=== PATIENT | male | born 1995 | race Caucasian/White ===

== ENCOUNTER 2025-06-16 12:25 | Emergency (ER) | payer SELFPAY ==
--- NOTE | ~2025-06-16 | CT_ITS ---
EXAMINATION: CT ABDOMEN AND PELVIS WITH CONTRAST CLINICAL INFORMATION: Abdominal pain, right upper and lower quadrants DLP: 344 mGY*cm COMPARISON: None available. TECHNIQUE: Multidetector volumetric images were obtained from the superior aspect of the liver through the pubic symphysis following administration 85 mL of Omnipaque 350 intravenous contrast. Sagittal and coronal reformatted images were obtained on the technologist's workstation. Oral contrast: No This CT examination was performed using dose optimization techniques as appropriate, variously including the following: *Automated exposure control *Adjustment of mA and/or kV according to patient size (this includes techniques or standardized protocols for targeted exams where dose is matched to indication/reason for exam; i.e. extremities or head) *Use of iterative reconstruction technique FINDINGS: LUNG BASES: The visualized lung bases are unremarkable. LIVER, GALLBLADDER, AND BILIARY TREE: There is a 12 x 15 mm lobulated low attenuating lesion measuring 43 Hounsfield located in the posterior right hepatic lobe. The gallbladder is unremarkable with no evidence of radiopaque gallstones, gallbladder wall thickening, or obvious pericholecystic inflammatory changes. PANCREAS: Unremarkable. SPLEEN: Unremarkable. ADRENAL GLANDS: Unremarkable. KIDNEYS AND URETERS: 2 mm punctate stone is present in the mid left kidney. 3 x 1 Millimeter stone is present in the mid right kidney. There is no hydronephrosis. BLADDER: Unremarkable. GASTROINTESTINAL TRACT: The small and large bowel are unremarkable. The appendix is unremarkable. ABDOMINAL WALL: No significant hernia is appreciated. LYMPH NODES: Normal. VASCULAR: Unremarkable. PELVIC VISCERA: Unremarkable. OSSEOUS STRUCTURES: Unremarkable. CT/CT abdomen pelvis w IV con IMPRESSION: There is an indeterminate 12 x 15 mm hypoattenuating lesion in the posterior right hepatic lobe. Follow-up nonemergent MRI liver without and with IV contrast. Small nonobstructing stones are present, one in each kidney. Fleischner guidelines were followed. Electronically signed by: Bayron Lutz MD 06/16/2025 03:47 PM EDT
[2025-06-16 12:34] VITALS: BP 124/71; PULSE 58; RESP 16; TEMP 37; O2SAT 96
[2025-06-16 12:54] LABS: MANUAL DIFF FLAG NO
--- NOTE | 2025-06-16 12:56 | ED_ITS ---
HPI - General Adult General Chief complaint: Abdominal Pain Stated complaint: Abd pain, loss of appetite, headache Time Seen by Provider: 06/16/25 14:04 Source: patient and RN notes reviewed Mode of arrival: ambulatory Limitations: no limitations History of Present Illness ED Provider: Ivis Lundberg PA-C [facility] narrative: This is a 30-year-old male, with no known medical problems, who presents emergency department with concerns of decreased appetite, diarrhea, headache, and epigastric pain. Patient reports that over this last month he has had decreased appetite, subjective fevers and chills, diarrhea, headache, and abdominal pain. Patient denies any recent travel, surgery, hospitalizations. He denies any sick contacts. Denies taking any medications at home to treat his current symptoms. He reports that the abdominal pain is constant and waxes and wanes in severity. Describing it as a warming sensation throughout his entire abdomen. He denies any vomiting, does reports some intermittent nausea. Denies any urinary symptoms. No other complaints or concerns at this time. MD complaint: Decreased appetite, diarrhea, epigastric pain Onset (ago): day(s) Radiation: non-radiation Quality: aching Pain Consistency: constant Relieving factors: none Exacerbating factors: none Associated symptoms: denies other symptoms Treatments prior to arrival: none Related Data Previous Rx's ?Medication ?Instructions ?Recorded dicyclomine 10 mg capsule 10 mg PO TID PRN abdominal p ain 3 06/16/25 days #9 caps loperamide 2 mg capsule (Imodium 2 mg PO Q6H PRN diarr hea #8 caps 06/16/25 A-D) ondansetron 4 mg disintegrating 4 mg PO Q8H PRN nausea and 06/16/25 tablet vomiting #10 tabs Allergies Allergy/AdvReac Type Severity Reaction Status Date / Time diphenhydramine (From Allergy Unknown Unknown Verified 06/16/25 14:57 Benadryl) Review of Systems 2 Review of Systems: Yes all other systems are reviewed and are negative Constitutional: Constitutional: Reports as per [facility] [place] Past Medical History Attestation statement: The following information was validated with the patient. Social History Social History Advance Directives: No Advance Directives Information Provided: Yes Physical Exam ED Vital Signs: Vital Signs - 24 hr 06/16/25 12:34 06/16/25 18:23 Temperature 98.6 F 98.6 F Pulse Rate 58 58 Respiratory Rate 16 16 Blood Pressure 124/71 124/71 Pulse Oximetry 96 96 Oxygen Delivery Method Room Air Room Air BMI result Body Mass Index 20.0 Const General: cooperative, comfortable and no acute distress Orientation/consciousness: patient oriented x3 Limitations: no limitations HENMT Head: Yes normal to inspection, Yes normocephalic and Yes atraumatic Ears: hearing grossly normal bilaterally General nose exam: Normal external nose present Face and sinus: Yes normal facial exam Mouth: Normal oral and palatal mucosa present, oropharynx normal and moist mucous membranes Throat: Yes posterior oropharynx normal Eyes General: appearance normal, both eyes and all related structures Eyelids: Yes eyelids normal Conjunctivae: conjunctivae normal Sclerae: sclerae normal Pupils: Equal, round and reactive pupils present EOM: EOMs intact bilaterally Neck Neck: Yes normal visual inspection, Yes full ROM and Yes no lymphadenopathy Lymphatic: no lymphadenopathy noted Chest Chest palpation & inspection: normal inspection of the chest Resp Effort & Inspection: normal respiratory effort and able to speak in complete sentences Auscultation: clear to auscultation bilaterally, no crackles, no rales, no rhonchi and no wheezes Cardio Rate: regular rate Rhythm: regular rhythm Heart sounds: S1 normal heart sound present and S2 normal heart sound present GI Other: abdomen is soft, with tenderness palpation in the right upper quadrant epigastrium and right lower quadrant. No rebound or guarding. Normoactive bowel sounds present in all 4 quadrants. Inspection: Yes normal to inspection Skin General skin exam: no rashes or lesions noted Trauma: no lacerations or abrasions Wounds: no wounds Neuro General: patient oriented x3 and moves all extremities Cranial nerves: Yes Equal, round and reactive pupils present Extrem General: Yes normal to inspection Right upper extremity: normal to inspection Left upper extremity: normal to inspection Right lower extremity: normal to inspection Left lower extremity: normal to inspection Course Course Course Narrative: RME performed by Christin Zamora PA-C. Patient is a 30 year old assigned male at presenting to the emergency department with abdominal pain, diarrhea, and headache. Patient states that he has had these symptoms for the last month. Detailed physical exam and review of systems are deferred to the primary special educator. Labs ordered. Patient placed back in the waiting room pending room availability and results. Medications Administered Discontinued Medications Generic Name Dose Route Start Last Admin Trade Name Lauren PRN Reason Stop Dose Admin Acetaminophen 1,000 mg in 100 mls @ 400 mls/hr 06/16/25 14:53 06/16/25 15:29 Ofirmev IV 06/16/25 15:07 Infused ONCE ONE Infusion Sodium Chloride 1,000 mls @ 999 mls/hr 06/16/25 14:54 06/16/25 16:34 Ns IV 06/16/25 15:54 Infused .Q1H1M ONE Infusion Iohexol 100 ml 06/16/25 15:25 06/16/25 15:25 Iohexol 350 Mg/Ml 100 Ml Infus..Btl IV 06/16/25 15:26 85 ml ONCE ONE Administration Ondansetron HCl 4 mg 06/16/25 14:53 06/16/25 15:14 Ondansetron Hcl 4 Mg/2 Ml Vial IVPUSH 06/16/25 14:54 4 mg ONCE ONE Administration Medical Decision Making Medical Decision Making MDM Narrative: This is a [id number]-male who presents to the ER with a complaint of abdominal pain, diarrhea, intermittent subjective fevers and chills. On arrival, vital signs within normal limits. He is speaking full sentences under no acute distress. Abdomen is soft, with mild tenderness palpation in the right upper quadrant, epigastrium and right lower quadrant. Differential diagnoses include travels diarrhea, electrolyte derangement, diverticulitis, diverticulosis, IBS, SBO, appendicitis. Labs were obtained prior to my evaluation, he has slight leukopenia at 4.7, no left shift, no electrolyte derangement. >> CT was obtained, revealing an indeterminate 12 x 15 mm hypoattenuating lesion in the posterior right hepatic lobe. Discussed this finding with patient, stressed the importance of following up outpatient. There were also small nonobstructing stones, 1 in each kidney. This is not the source of his symptoms. Discussed brat diet. Also given referral to GI specialist to follow- up given change in bowel habits. Discussed strict return precautions. He was also discharge with Imodium, and Bentyl to see if this helps with his pain. Patient stable for discharge. Differential Diagnosis Differential Diagnoses: The differential diagnosis associated with the presentation includes see above Admission/Observation Consideration of admission/observation: Escalation of care including admission/observation considered Lab Data [facility] Lab Attestation statement: I reviewed the patient's lab results. see MDM and course 06/16/25 12:50 06/16/25 12:50 Labs: Lab Results 06/16/25 06/16/25 Range/Units 12:50 17:44 WBC 4.7 L (4.8-10.8) X10*3/uL RBC 4.58 L (4.60-5.80) X10*6/uL Hgb 15.3 (14.0-18.0) g/dl Hct 45.3 (42.0-52.0) % MCV 98.9 H (80.0-98.0) fL MCH 33.4 H (27.0-33.0) pg MCHC 33.8 (31.0-36.0) g/dl RDW 12.2 (11.0-16.0) % Plt Count 166 (160-400) X10*3/uL MPV 9.5 (9.4-12.4) fL Immature Gran % (Auto) 0.2 (0.0-0.4) % Neut % (Auto) 57.8 (45-73) % Lymph % (Auto) 31.6 (20-40) % Titus % (Auto) 9.4 (2-11) % Eos % (Auto) 0.6 (0-4) % Baso % (Auto) 0.4 (0-2) % Lymph # (Auto) 1.5 (1.2-4.9) X10*3/uL Titus # (Auto) 0.4 (0.1-1.2) X10*3/uL Eos # (Auto) 0.0 (0.0-0.4) X10*3/uL Baso # (Auto) 0.0 (0.0-0.2) X10*3/uL Abs Immat Gran (auto) 0.01 (0.00-0.03) X10*3/uL Absolute Neuts (auto) 2.7 (2.0-8.3) x10*3/uL Absolute Nucleated RBC 0.000 (0.0-0.012) X10*3/uL Nucleated RBC % (auto) 0.0 (0.0-0.2) /100WBC Sodium 141 (135-145) mmol/L Potassium 4.0 (3.3-5.1) mmol/L Chloride 109 H (96-108) mmol/L Carbon Dioxide 24 (22-29) mmol/L Anion Gap 12 (12-20) BUN 12 (9-16) mg/dL Creatinine 0.63 (0.5-1.4) mg/dL Estim Creat Clear Calc 146.1 Estimated GFR > 60 Random Glucose 96 (60-115) mg/dL Calcium 9.2 (8.4-10.2) mg/dL Total Bilirubin 0.6 (0.0-1.0) mg/dL Direct Bilirubin 0.2 (0.0-0.5) mg/dL AST 24 (5-37) U/L ALT 24 (0-40) U/L Alkaline Phosphatase 58 (39-117) U/L Total Protein 7.6 (6.5-8.0) g/dL Albumin 5.2 H (3.5-5.0) g/dL Lipase 20 (8-78) U/L Urine Color Yellow Urine Appearance Clear Urine pH 6.5 (5.0-9.0) Ur Specific Northrop 1.015 (1.005-1.025) Urine Protein Negative (Neg-Trace) mg/dL Urine Glucose (UA) Negative (Negative) mg/dL Urine Ketones Negative (Negative) mg/dL Urine Blood Trace H (Negative) Urine Nitrite Negative (Negative) Ur Leukocyte Esterase Negative (Negative) Urine RBC 6-10 H (0-2) /HPF Urine WBC 0-5 (0-5) /HPF Ur Squamous Epith Cells 0-2 (0-2) /HPF Urine Bacteria None Seen (None Seen) Hyaline Casts 0-2 (0-2) /LPF C. difficile Tox B Gene Cancelled Radiology Impression Discussion of test interpretation with radiology: I have reviewed the radiologist's reading. Radiologist Impression: FINDINGS: LUNG BASES: The visualized lung bases are unremarkable. LIVER, GALLBLADDER, AND BILIARY TREE: There is a 12 x 15 mm lobulated low attenuating lesion measuring 43 Hounsfield located in the posterior right hepatic lobe. The gallbladder is unremarkable with no evidence of radiopaque gallstones, gallbladder wall thickening, or obvious pericholecystic inflammatory changes. PANCREAS: Unremarkable. SPLEEN: Unremarkable. ADRENAL GLANDS: Unremarkable. KIDNEYS AND URETERS: 2 mm punctate stone is present in the mid left kidney. 3 x 1 Millimeter stone is present in the mid right kidney. There is no hydronephrosis. BLADDER: Unremarkable. GASTROINTESTINAL TRACT: The small and large bowel are unremarkable. The appendix is unremarkable. ABDOMINAL WALL: No significant hernia is appreciated. LYMPH NODES: Normal. VASCULAR: Unremarkable. PELVIC VISCERA: Unremarkable. OSSEOUS STRUCTURES: Unremarkable. CT/CT abdomen pelvis w IV con IMPRESSION: There is an indeterminate 12 x 15 mm hypoattenuating lesion in the posterior right hepatic lobe. Follow-up nonemergent MRI liver without and with IV contrast. Small nonobstructing stones are present, one in each kidney. Fleischner guidelines were followed. Electronically signed by: Bayron Lutz MD 06/16/2025 03:47 PM EDT RP Dictated By: Bayron Lutz MD Discharge Plan Discharge Clinical Impression: Diarrhea, Abnormal CT scan Patient Disposition: Home, Self-Care Instructions: Acute Diarrhea (ED), Nutrition Tips for Relief of Diarrhea (ED) Additional Instructions: You were seen in the emergency department due to diarrhea, abdominal pain. Your overall workup today was reassuring. Your CT scan does show some nonobstructing stones, as well as an indeterminate followed by 15 mm hypoattenuating lesion in the posterior right hepatic lobe. Recommending follow-up MRI. You may follow-up with your primary care physician regarding this. Please make appointment tomorrow. Sticking to a diet consisting of bananas, rice, applesauce, and toast all avoiding dairy and spicy/fried foods can help with slowing down with the digestive tract to prevent further diarrhea. Please take Imodium as prescribed. Bentyl can also help with abdominal cramping. Drink plenty of fluids get plenty of rest. If any new or worsening symptoms occur including but not limited to worsening abdominal pain, bloody or black stool, please seek emergent care. Prescriptions: New loperamide [Imodium A-D] 2 mg capsule 2 mg PO Q6H PRN (Reason: diarrhea) Qty: 8 0RF dicyclomine 10 mg capsule 10 mg PO TID PRN (Reason: abdominal pain) 3 Days Qty: 9 0RF ondansetron 4 mg tablet,disintegrating 4 mg PO Q8H PRN (Reason: nausea and vomiting) Qty: 10 0RF Referrals: [facility] [Provider Group, Gastroenterology] Referral Note: diarrhea, change in stool; hepatic lobe lesion - no PCP [facility] [place] [Provider Group, Internal Medicine] Referral Note: Needs PCP; also incidental finding on CT - liver lesion - needs MRI for further eval Interventions: ED Discharge Assessment Last Done: 06/16/25 18:23 Print Language: [place]
[2025-06-16 12:57] LABS: Appearance Urine Clear; Glucose Urine UA Negative (Negative); PH 6.5 (5.0-9.0); Specific Gravity - Urine 1.015 (1.005-1.025); UMIC TRIGGER UACC YES
[2025-06-16 13:01] LABS: Hematocrit 45.3 % (42.0-52.0); Hemoglobin 15.3 g/dl (14.0-18.0); Imm Gran Abs Auto 0.01 X10*3/uL (0.00-0.03); Imm Gran Pct Auto 0.2 % (0.0-0.4); Lymphocytes Absolute Auto 1.5 X10*3/uL (1.2-4.9); Mean Corpuscular HGB Conc 33.8 g/dl (31.0-36.0); Mean Corpuscular Hemoglobin 33.4 pg (27.0-33.0); Mean Corpuscular Volume 98.9 fL (80.0-98.0); NRBC Abs Auto 0.000 X10*3/uL (0.0-0.012); NRBC Pct Auto 0.0 /100WBC (0.0-0.2); Platelet Count 166 X10*3/uL (160-400); Red Blood Count 4.58 X10*6/uL (4.60-5.80); White Blood Count 4.7 X10*3/uL (4.8-10.8)
[2025-06-16 13:15] LABS: Alanine Aminotransferase 24 U/L (0-40); Albumin Level 5.2 g/dL (3.5-5.0); Alkaline Phosphatase 58 U/L (39-117); Anion Gap 12 (12-20); Aspartate Amino Transferase 24 U/L (5-37); Blood Urea Nitrogen 12 mg/dL (9-16); Calcium 9.2 mg/dL (8.4-10.2); Carbon Dioxide 24 mmol/L (22-29); Chloride 109 mmol/L (96-108); Creatinine Clr Calc Pharmacy 146.1; Estimated Glomerular Filt Rate > 60; Lipase 20 U/L (8-78); Potassium 4.0 mmol/L (3.3-5.1); Sodium 141 mmol/L (135-145); Total Protein 7.6 g/dL (6.5-8.0)
[2025-06-16] MEDS: iohexoL 350 MG/ML 100 ML INFUS..BTL IV (15:25)
[2025-06-16 18:23] VITALS: BP 124/71; PULSE 58; RESP 16; TEMP 37; O2SAT 96
[2025-06-17 09:50] LABS: E. coli EAEC Not Detected (Not Detect.); E. coli EPEC Not Detected (Not Detect.); E. coli ETEC Not Detected (Not Detect.); E. coli STEC Not Detected (Not Detect.); Shigella sp./EIEC Not Detected (Not Detect.)
== END 2025-06-16 18:23 | disposition home or self-care (01) ==
PROVIDERS: Physician Assistant Medical; Emergency Provider Emergency Medicine Emergency Medical Services
DX: R19.7 Diarrhea, unspecified (principal); R10.9 Unspecified abdominal pain; R51.9 Headache, unspecified; R10.13 Epigastric pain; R93.89 Abnormal findings on diagnostic imaging of other specified body structures
CPT/HCPCS: 36415; 74177; 80048; 80076; 81001; 83690; 85025; 87177; 87209; 87507; 96361; 96374; 96375; 99283; 99284; J0131; J2405; Q9967

== ENCOUNTER → 2025-06-16 14:53 | Outpatient (BNV) | payer OTHER, SELFPAY | PROVIDERS: Emergency Provider Emergency Medicine Emergency Medical Services; Visit Provider Radiology Diagnostic Radiology | DX: N20.0 Calculus of kidney (principal) | CPT/HCPCS: 74177 ==